=== PATIENT | female | born 1985 | race Caucasian/White ===

== ENCOUNTER 2023-09-13 16:58 | Emergency (ER) | payer BC, SELFPAY ==
[2023-09-13] VITALS (8 sets, daily range): BP systolic 111–148; BP diastolic 64–84; PULSE 75–100; RESP 18; TEMP 36.5; O2SAT 97–100; BMI 21.9
--- NOTE | 2023-09-13 17:34 | ED_ITS ---
HPI - General Adult General Chief complaint: Chest Pain Stated complaint: Chest pain/ tightness Time Seen by Provider: 09/13/23 17:34 History of Present Illness HPI narrative: onset of chest heaviness approx 15 minutes ago. no cardiac history 37-year-old woman presenting to the emergency department with concern of chest heaviness. She says like a cat sitting on it. They do have 2 cats in the sometimes feels the same. She notes a history of similar thought to be related to anxiety sometime back. Has not been having a sense of palpitations or irregular heartbeats. Notes her father has AFib and heart failure. She does not personally have any cardiac problems. Not so much short of breath but does have a history of sighing dyspnea. Has an odd sensation in her left upper arm which is not unfamiliar including with deep breath sometimes; at least that is how I understood the explanation. Otherwise no peripheral symptoms. No nausea. Does not really have any pleuritic pain. She offers stressors including [id number] with dementia who has just come to live in their home. Related Data Home Medications Medication Instructions Recorded Confirmed No Known Home Medications 09/13/23 09/13/23 Allergies Allergy/AdvReac Type Severity Reaction Status Date / Time No Known Drug Allergies Allergy Verified 09/13/23 17:04 Review of Systems Status of ROS: Reports: 6 or more systems reviewed and unremarkable except as noted in History and below [facility] Social History Smoking Status: Never smoker Do you use any of these nicotine containing products: None Second hand tobacco smoke exposure: No How often do you have a drink containing alcohol: never How often do you have six or more drinks on one occasion: Never AUDIT-C Alcohol total score: 0 Non-prescribed substance use: denies use Exam Narrative: Exam Narrative: Very energetic. Positive affect. Cranial nerves 2-12 intact. Breathing easily. Trachea midline. Skin is warm and dry. No apparent rash. Extremities are well perfused without edema. No sensory loss just subjective oddity in the left shoulder area. Moving all extremities without difficulty. Lungs are clear. Breath sounds throughout. No supraclavicular crepitus. Discomfort as mention does not clearly reproducible. Heart in elevated rate but regular rhythm. Const: Vital Signs, click to edit/add: Vital Signs - 24 hr 09/13/23 17:01 09/13/23 18:02 09/13/23 18:03 Temperature 97.7 F Pulse Rate 81 82 Pulse Rate [Right Pulse Oximeter] 100 Respiratory Rate 18 Blood Pressure 113/78 Blood Pressure [Ri ght Upper Arm] 148/84 H Pulse Oximetry 100 97 98 Oxygen Delivery Me thod Room Air 09/13/23 18:15 09/13/23 18:30 09/13/23 18:45 Temperature Pulse Rate 82 83 78 Pulse Rate [Right Pulse Oximeter] Respiratory Rate Blood Pressure Blood Pressure [Ri ght Upper Arm] Pulse Oximetry 99 97 97 Oxygen Delivery Me thod 09/13/23 19:00 09/13/23 19:01 Temperature Pulse Rate 75 81 Pulse Rate [Right Pulse Oximeter] Respiratory Rate Blood Pressure 111/64 Blood Pressure [Ri ght Upper Arm] Pulse Oximetry 97 98 Oxygen Delivery Me thod Documenting provider has reviewed patient's vital signs: yes Course Vital Signs Vital signs: Initial Vital Signs Temperature 97.7 F 09/13/23 17:01 Temperature Source Temporal Artery Scan 09/13/23 17:01 Pulse Rate 100 09/13/23 17:01 Respiratory Rate 18 09/13/23 17:01 Blood Pressure 148/84 H 09/13/23 17:01 Blood Pressure Mean 105 09/13/23 17:01 Blood Pressure Position Sitting 09/13/23 17:01 Pulse Oximetry 100 09/13/23 17:01 Oxygen Delivery Method Room Air 09/13/23 17:01 Vital Signs Temperature 97.7 F 09/13/23 17:01 Pulse Rate 100 09/13/23 17:01 Respiratory Rate 18 09/13/23 17:01 Blood Pressure 148/84 H 09/13/23 17:01 Pulse Oximetry 100 09/13/23 17:01 Oxygen Delivery Method Room Air 09/13/23 17:01 Temperature 97.7 F 09/13/23 17:01 Pulse Rate 81 09/13/23 19:01 Respiratory Rate 18 09/13/23 17:01 Blood Pressure 111/64 09/13/23 19:01 Pulse Oximetry 98 09/13/23 19:01 Oxygen Delivery Method Room Air 09/13/23 17:01 Medical Decision Making MDM Narrative Medical decision making narrative: EKG as noted above. Will check labs looking for ischemic cardiovascular event or evidence of coagulopathy. Does not appear to have infectious etiology. No reproducible radicular symptoms. Pneumothorax possible but unlikely. Possible tachyarrhythmia however EKG does not show this at this time. Anemia? On reassessment symptoms have faded. Not reproducible with deep breaths. Less likely to have pleurisy or pulmonary embolus I think. Pretest probability quite low. TSH to be checked if arrhythmia found to be present over time of monitoring. Labs reviewed. Reassuring. D-dimer noted at 0.63. I did discuss this with Ms. Holliday. No further events during time in the emergency department See patient discharge plan Lab Data Lab results reviewed: Yes I reviewed the patient's lab results Labs: Lab Results 09/13/23 09/13/23 09/13/23 Range/Units 17:45 17:57 19:28 Hgb 12.0 (12.0-16.0) gm/dL D-Dimer Quant (PE/DVT) 0.63 H (0.00-0.50) ug/ml Sodium 136 (135-149) mmol/L Potassium 4.1 (3.6-5.1) mmol/L Chloride 102 (96-114) mmol/L Carbon Dioxide 24 (20-32) mmol/L Anion Gap 10 (7-15) mEq/L BUN 11 (5-24) mg/dL Creatinine 0.4 L (0.5-1.5) mg/dL Estimated Creat Clear 149.34 Estimated GFR 129 ml/min Glucose 130 H (60-115) mg/dL Calcium 9.4 (8.4-10.6) mg/dL Troponin I < 0.01 L (0.01-0.04) ng/mL TSH 1.490 (0.270-4.20) uIU/mL Lab Acknowledgement Test Added POC Troponin I 0.00 L (0.01-0.04) ng/ml ECG Data Attestation: I personally reviewed and interpreted this ECG as follows: (Normal sinus rhythm with a rate of 83. No ischemic changes appreciated.) Discharge Plan Discharge Clinical Impression: Other social stressor, Chest pressure Patient Disposition: Home, Self-Care Condition: Improved Additional Instructions: I am inclined to the agree with you that some social stressors or anxiety coming from that are a better explanation for the pressure that you were feeling, now essentially resolved. I will add on some labs as discussed and call you if anything is of concern. Return for increasing and persistent chest pain, increasing shortness of breath or lightheadedness persistently high heart rate . Prescriptions: No Action No Known Home Medications Follow Up/Referrals: Carmen Galeana MD [Primary Care Provider] - Stand Alone Forms: [employer] Info Instructions
[2023-09-13 18:22] LABS: D Dimer Quantitative* 0.63 ug/ml (0.00-0.50)
[2023-09-13 18:43] LABS: Troponin I* < 0.01 ng/mL (0.01-0.04)
[2023-09-13 23:27] LABS: Chloride* 102 mmol/L (96-114); Sodium* 136 mmol/L (135-149)
[2023-09-13 23:28] LABS: Potassium* 4.1 mmol/L (3.6-5.1)
[2023-09-13 23:30] LABS: Anion Gap 10 mEq/L (7-15); Blood Urea Nitrogen* 11 mg/dL (5-24); Carbon Dioxide* 24 mmol/L (20-32); Creatinine* 0.4 mg/dL (0.5-1.5); Est. Creatinine Clearance* 149.34; Estimated Glomerular Filt Rate 129 ml/min
[2023-09-13 23:31] LABS: Calcium* 9.4 mg/dL (8.4-10.6); Glucose* 130 mg/dL (60-115)
== END 2023-09-13 19:22 | disposition home or self-care (01) ==
PROVIDERS: Emergency Provider Family Medicine; PCP Family Medicine
DX: R07.89 Other chest pain (principal); Z63.79 Other stressful life events affecting family and household
CPT/HCPCS: 36415; 80048; 84443; 84484; 85018; 85379; 93005; 95992; 99284